=== PATIENT | male | born 1950 | race Caucasian/White ===

== ENCOUNTER 2021-04-15 02:04 | Emergency (ER) | payer MEDICARE ==
[2021-04-15 03:42] LABS: BASOPHIL 0.1 % (0-2); EOSINOPHIL 0.5 % (0-7); HCT 48.3 % (42.0-52.0); HGB 15.9 g/dl (13.2-18.0); LYMPHOCYTE 15.4 % (15-48); MCH 31.2 pg (25.0-31.0); MCHC 32.9 g/dL (32.0-36.0); MCV 94.7 fL (78.0-100.0); MONOCYTE 8.6 % (0-12); MPV 10.4 fL (6.0-9.5); NEUTROPHIL 75.1 % (41-80); NRBC 0; PLT 145 K/uL (150-400); RDW 12.7 % (11.5-14.0); WBC 7.6 K/uL (4.0-10.5)
[2021-04-15 04:15] LABS: BUN/CREAT RATIO (CALC) 11.5 RATIO; CREATININE 0.96 mg/dL (0.67-1.17); POTASSIUM 4.1 mmol/L (3.5-5.1)
[2021-04-15] MEDS ORDERED: PREDNISONE 20MG20 MG PO ×2 (05:57→07:34)
[2021-04-15] MEDS ORDERED: G TUSSIN AC LI118 ML PO (06:11)
== END 2021-04-15 08:00 | disposition home or self-care (01) ==
LOC: FER 02:04
PROVIDERS: Internal Medicine
DX: U07.1 COVID-19 (principal); J02.8 Acute pharyngitis due to other specified organisms; B97.89 Other viral agents as the cause of diseases classified elsewhere; Z86.16 Personal history of COVID-19
CPT/HCPCS: 36415; 70491; 80048; 84145; 84484; 85025; 87880; 93005; J1100; J3490; Q9967